=== PATIENT | female | born 1960 | race Caucasian/White ===

== ENCOUNTER → 2016-06-14 19:32 | Outpatient (CLI) | payer MEDICAID | END | disposition home or self-care (01) | LOC: D.SLEEP 19:32 | DX: G47.33 Obstructive sleep apnea (adult) (pediatric) (principal) ==

== ENCOUNTER → 2017-03-28 08:41 | Outpatient (CLI) | payer MEDICAID ==
--- NOTE | ~2017-03-28 | EC ---
PATIENT:BONNIE DE JESUS DATE OF SERVICE: 03/28/17 SEX: F MEDICAL RECORD: [id number] DATE OF : 64 LOCATION:[facility] AGE OF PATIENT: 56 ADMISSION DATE: 03/28/17 REFERRING PHYSICIAN: INTERPRETING PHYSICIAN: HENRIQUE BLANDON MD ECHOCARDIOGRAM REPORT ECHO CHARGES 4 ECHO COMPLETE CLINICAL DIAGNOSIS: ASTHMA ECHOCARDIOGRAPHIC MEASUREMENTS (adult normal given) AC root (d.<3.7cm) 3.3 cm LV Septum d (<1.2 cm> 1.1 cm Valve Excursion 1.9 cm LV Septum (systole) 1.3 cm Left Atria (s.<4.0cm> 4.0 cm LVPW d(<1.2cm) 0.9 cm RV (d.<2.3cm) 2.7 cm LVPW (sytole) 1.4 cm LV diastole(<5.6CM) 4.6 cm MV E-F(>70mm/sec) cm LV systole 2.5 cm LVOT Diameter 1.9 cm MV exc.(>10mm) cm Est.ejection fraction (50-75%) % Pericardial Effusion N DOPPLER: LVIT cm/sec A 77.0 cm/sec E 69.0 cm/sec LA cm/sec RVSP 42.0 mmHg LVOT 101 cm/sec AOP1/2T m/s Asc. 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 Blandon TAPE# PACS DATE OF SERVICE: 03/28/2017 PROCEDURE: Echocardiogram. FINDINGS: 1. Left ventricular chamber size is within normal limits. Left ventricular systolic function is normal. Overall ejection fraction estimated at 60%. 2. Left atrium, right atrium, and right ventricular chamber sizes are within normal limits. 3. Valvular structures have normal structure and motion. ECHOCARDIOGRAM REPORT [id number] BONNIE DE JESUS 4. Doppler interrogation only reveals mild tricuspid regurgitation. No other valvular insufficiency or stenosis. Pulmonary systolic pressure is estimated 42 mmHg. 5. No evidence of pericardial effusion or left ventricular thrombus. TRANSINT:[id number] Voice Confirmation ID: [id number] DOCUMENT ID: [id number] HENRIQUE BLANDON MD at 1323 CC: [id number] DICTATION DATE: 03/28/17 1017 MANUFACTURING ENGINEERING INTERN: 03/28/17 1147 DEP CLI 03/28/17 [place] [id number] [place] [id number]
== END | disposition home or self-care (01) ==
LOC: D.LAB 02-06 08:00 → D.ECHO 02-06 08:00 → D.RAD 02-06 08:00 → D.RT 02-06 08:00 → D.ECHO 02-06 09:00 → D.RAD 02-06 09:30 → D.LAB 02-06 10:00 → D.RT 03-09 09:00 → D.ECHO 03-09 10:00 → D.RAD 03-09 10:30 → D.LAB 03-09 11:00 → D.RT 03-14 09:00 → D.ECHO 03-14 09:00 → D.RAD 03-14 09:00 → D.RT 03-14 09:45 → D.ECHO 03-14 10:00 → D.RAD 03-14 11:00 → D.LAB 03-14 11:30 → D.ECHO 08:41
DX: J45.909 Unspecified asthma, uncomplicated (principal)

== ENCOUNTER 2019-12-22 11:18 | Day surgery (SDC) | payer MEDICAID ==
[~2019-12-22] VITALS: Ht 162.6 cm; Wt 105.5 kg
--- NOTE | ~2019-12-22 | OP ---
PATIENT NAME: BONNIE DE JESUS MEDICAL RECORD: [id number] :64 LOCATION:[facility] ADMISSION DATE: SURGEON: POLO SOLER DO DATE OF OPERATION: 12/22/2019 PROCEDURE: Colonoscopy with polypectomy. INDICATIONS FOR PROCEDURE: History of colon polyps, family history positive for colon cancer in the patient's mother, hematochezia, and hemorrhoids. SCOPE: Olympus video pediatric colonoscope. MEDICATIONS: Propofol 650 mg IV per anesthesia. WITHDRAWAL TIME: 15 minutes. ESTIMATED BLOOD LOSS: Minimal. COMPLICATIONS: None. FINDINGS: Informed consent was given. The patient was made comfortable with the above medication. After reaching an adequate level of sedation by slow IV push, the patient was placed on her left side. A digital rectal examination was performed and was normal. The endoscope was advanced under direct visualization through the rectum to the cecum, confirmed by the presence of the appendiceal orifice and ileocecal valve. The endoscope was slowly withdrawn and mucosa was carefully examined. The prep quality was good. There were multiple polyps visualized on today's examination. Fiber located in the rectum. They were all benign appearing and sessile and ranged in size from 3-5 mm in diameter. They were all removed using a hot snare. In the descending colon, there were two separate benign-appearing sessile polyps, which ranged in size from 3-5 mm in diameter. They were all removed using a hot snare. There was evidence of mild to moderate diverticulosis involving the descending and sigmoid colon. Retroflexion was performed in the rectum with visualization of grade I internal hemorrhoids without bleeding. The endoscope was withdrawn from the patient. The patient tolerated the procedure well and there were no complications. IMPRESSION: 1. Multiple polyps as described above, removed using hot snare. 2. Mild to moderate diverticulosis of the descending and sigmoid colon. 3. Grade I internal hemorrhoids without bleeding. PLAN AND RECOMMENDATIONS: 1. Discharge home when recovery parameters are met. 2. Follow up biopsy specimen results. 3. High fiber diet. 4. Continue current medications. 5. Recall colonoscopy in 3-5 year time line range. TRANSINT:[id number] Voice Confirmation ID: [id number] DOCUMENT ID: [id number] OPERATIVE REPORT [id number] BONNIE DE JESUS POLO SOLER DO CC: [id number] DICTATION DATE: 12/22/191405 HUMIDIFIER OPERATOR: 12/22/19 2312 [facility] 12/22/19 [facility] [address] [place] [id number]
[2019-12-22 11:50] LABS: HEMATOCRIT 45.5 % (36.0-48.0); HEMOGLOBIN 14.2 g/dL (12-16); MCH 28.3 pg (26.0-34.0); MCHC 31.2 g/dL (31.0-37.0); MCV 90.8 fL (80.0-100.0); MEAN PLATELET VOLUME 9.3 fL (7.4-10.4); RBC 5.01 10x6/uL (4.00-5.40); RDW 14.1 % (11.5-14.5); WBC 4.9 10x3/uL (4.8-10.8)
[2019-12-22 11:57] LABS: ANION GAP 7.9 mmol/L (8-16); CARBON DIOXIDE 31.7 mmol/L (21.0-32.0); POTASSIUM - SERUM 3.6 mmol/L (3.5-5.1)
[2019-12-22] MEDS ORDERED: OXYCONTIN10 MG PO (12:49)
[2019-12-22] MEDS ORDERED: VALIUM5 MG PO (12:49)
[2019-12-22] MEDS ORDERED: VOLTAREN75 MG PO (12:50)
[2019-12-22] MEDS ORDERED: OMEPRAZOLE20 M1 PO (12:50)
[2019-12-22] MEDS ORDERED: PAXIL20 MG PO (12:51)
[2019-12-22] MEDS ORDERED: PRAVACHOL40 MG PO (12:52)
[2019-12-22 12:53] VITALS: Ht 162.6 cm; Wt 105.5 kg
--- NOTE | 2019-12-22 14:20 | NUR ---
1410 DR. RYDER RODRIGUEZ
== END 2019-12-22 15:00 | disposition home or self-care (01) ==
LOC: D.OPS 11:18
PROVIDERS: Anesthesiology; ATTEND Internal Medicine Gastroenterology
DX: Z86.010 Personal history of colon polyps (principal); Z80.0 Family history of malignant neoplasm of digestive organs; K92.1 Melena; K64.0 First degree hemorrhoids; K57.30 Diverticulosis of large intestine without perforation or abscess without bleeding; K63.5 Polyp of colon